=== PATIENT | female | born 1975 | race American Indian/Alaskan Native ===

== ENCOUNTER 2017-12-19 23:01 | Inpatient (IN) | payer SELFPAY ==
[2017-12-19 23:58] LABS: Basophils # (Auto) 0.1 K/mm3 (0.0-0.1); Basophils % (Auto) 1.1 % (0.0-1.8); Eosinophils % (Auto) 0.6 % (0.0-4.3); Lymphocytes # (Auto) 2.3 K/mm3 (1.2-5.4); Lymphocytes % (Auto) 41.3 % (13.4-35.0); Mean Corpuscular HGB Conc 32 % (30-34); Monocytes # (Auto) 0.4 K/mm3 (0.0-0.8); Monocytes % (Auto) 7.4 % (0.0-7.3); Platelet Count 613 K/mm3 (140-440); Red Blood Count 2.36 M/mm3 (3.65-5.03); Red Cell Distribution Width 19.6 % (13.2-15.2)
[2017-12-20] LABS: Mean Corpuscular Hemoglobin 22 pg (28-32); Mean Corpuscular Volume 69 fl (79-97)
[2017-12-20 00:01] LABS: Hematocrit 16.2 % (30.3-42.9); Hemoglobin 5.1 gm/dl (10.1-14.3)
[2017-12-20 00:19] LABS: BUN/Creatinine Ratio 12; Blood Urea Nitrogen 6 mg/dL (7-17); Hemolysis Index 3
[2017-12-20] MEDS ORDERED: NACL 0.9% 500 ML 500 ML IV ONE (00:23)
--- NOTE | 2017-12-20 00:30 | Emergency Department Report ---
HPI - General Chief Complaint: Dyspnea/Respdistress Time Seen by Provider: 12/20/17 00:12 - HPI HPI: Room 3 The patient is a 42-year-old female presenting with a chief complaint of shortness of breath and weakness. Patient states for the past 4 days and feeling short of breath and weak especially when standing. Patient states she' s been eating more ice than normal. Patient denies pain of any type. The patient states she had one episode of vomiting yesterday and the vomitus consisted of food. There is no hematemesis. Patient states last week for 1 day she had black stool. The patient states she has a history of heavy cycles intermittently for her last cycle started 4 days ago and has been roving frame tender than normal. The patient states she goes through over 10 pads per day for the past and so she just likes to frequently change her pads. Location: [See above] Duration: 4 days Quality: Shortness of breath, weakness Severity: Moderate Modifying factors: [see above] Context: [see above] Mode of transportation: [not driving] ED Past Medical Hx - Past Medical History Previous Medical History?: No - Surgical History Past Surgical History?: No - Family History Family history: no significant - Social History Smoking Status: Never Smoker Substance Use Type: None (denies illicit drug use), Alcohol (rarely) - Medications Home Medications: Home Medications Medication Instructions Recorded Confirmed Last Taken Type No Known Home Medications [No 12/19/17 12/19/17 Unknown History Reported Home Medications] ED Review of Systems ROS: Stated complaint: SOB Other details as noted in HPI Constitutional: weakness Eyes: denies: eye pain ENT: denies: throat pain Respiratory: shortness of breath Cardiovascular: denies: chest pain Endocrine: denies: unexplained weight loss Gastrointestinal: nausea, vomiting, melena. denies: abdominal pain, hematemesis Genitourinary: denies: dysuria Musculoskeletal: denies: back pain Neurological: denies: headache Physical Exam - Physical Exam Vital Signs: Vital Signs 12/19/17 12/20/17 22:59 00:09 Temperature 99.1 F 98.4 F Pulse Rate 105 H 100 H Respiratory 22 16 Rate Blood Pressure 137/86 Blood Pressure 124/83 [Left] O2 Sat by Pulse 100 100 Oximetry Physical Exam: GENERAL: The patient is well-developed well-nourished female lying on stretcher not appearing to be in acute distress. [] HEENT: Normocephalic. Atraumatic. Extraocular motions are intact. Patient has moist mucous membranes. NECK: Supple. Trachea midline CHEST/LUNGS: Clear to auscultation. There is no respiratory distress noted. HEART/CARDIOVASCULAR: Regular. There is no tachycardia. There is no gallop rub or murmur. ABDOMEN: Abdomen is soft, nontender. Patient has normal bowel sounds. There is no abdominal distention. SKIN: There is no rash. There is no edema. There is no diaphoresis. NEURO: The patient is awake, alert, and oriented. The patient is cooperative. The patient has normal speech MUSCULOSKELETAL: There is no evidence of acute injury. RECTAL: Guaiac positive PELVIC: Scant blood in vaginal vault ED Course Vital Signs 12/19/17 12/20/17 22:59 00:09 Temperature 99.1 F 98.4 F Pulse Rate 105 H 100 H Respiratory 22 16 Rate Blood Pressure 137/86 Blood Pressure 124/83 [Left] O2 Sat by Pulse 100 100 Oximetry - Consultations Consultation #1: 12/20/17 02:05 Gastroenterology paged 12/20/17 02:[address] bertrand-request patient remained nothing by mouth. Okay with Protonix BID dosing ED Medical Decision Making - Lab Data Result diagrams: 12/19/17 23:39 12/19/17 23:39 Laboratory Tests 12/19/17 12/19/17 12/19/17 23:39 23:39 23:39 WBC 5.5 RBC 2.36 L Hgb 5.1 L* Hct 16.2 L* MCV 69 L MCH 22 L MCHC 32 RDW 19.6 H Plt Count 613 H Lymph % (Auto) 41.3 H [place] % (Auto) 7.4 H Eos % (Auto) 0.6 Baso % (Auto) 1.1 Lymph # 2.3 [place] # 0.4 Eos # 0.0 Baso # 0.1 Seg Neutrophils % 49.6 Seg Neutrophils # 2.7 PT INR APTT Sodium 134 L Potassium 4.0 Chloride 96.9 L Carbon Dioxide 22 Anion Gap 19 BUN 6 L Creatinine 0.5 L Estimated GFR > 60 BUN/Creatinine Ratio 12 Glucose 238 H Calcium 9.0 Troponin T < 0.010 HCG, Qual Negative Blood Type Antibody Screen Crossmatch 12/20/17 12/20/17 00:22 00:29 WBC RBC Hgb Hct MCV MCH MCHC RDW Plt Count Lymph % (Auto) [place] % (Auto) Eos % (Auto) Baso % (Auto) Lymph # [place] # Eos # Baso # Seg Neutrophils % Seg Neutrophils # PT 14.4 INR 1.06 APTT 20.1 L Sodium Potassium Chloride Carbon Dioxide Anion Gap BUN Creatinine Estimated GFR BUN/Creatinine Ratio Glucose Calcium Troponin T HCG, Qual Blood Type O NEGATIVE Antibody Screen Negative Crossmatch See Detail - EKG Data -: EKG Interpreted by Me EKG shows normal: sinus rhythm Rate: normal - EKG Data When compared to previous EKG there are: previous EKG unavailable Interpretation: other (no ischemic changes seen) - Radiology Data Radiology results: report reviewed (pelvic ultrasound), image reviewed (pelvic ultrasound, chest x-ray) interpreted by me: Chest x-ray-no focal infiltrates, no pneumothorax [facility] [address] [place] [address] Ultrasound Report Signed Patient: LEANDRO MISHRA MR#: [id number] : 1975 Acct:[id number] Age/Sex: 42 / F ADM Date: 12/19/17 Loc: ED Attending Dr: Ordering Physician: ÁLVARO PEREZ MD Date of Service: 12/20/17 Procedure(s): US transvaginal Accession Number(s): [id number] cc: ÁLVARO PEREZ MD FINAL REPORT EXAM: US TRANSVAGINAL HISTORY: history of menorrhagia TECHNIQUE: Routine transvaginal imaging was obtained of the pelvis with Doppler interrogation of the adnexa. FINDINGS: The uterus is anteverted and enlarged measuring 10.4 cm x 7.2 cm x 8.8 cm. The myometrium is inhomogeneous. There are 2 discrete fibroids in the body of the uterus. One is anterior measuring 4.6 cm x 2.6 cm x 4.8 cm. The other 1 is posterior in position measuring 3.4 cm x 2.1 cm x 2 cm. The endometrial thickness is 1.9 mm. The right ovary is normal size contour blood flow and echotexture measuring 2.1 cm x 1.5 cm x 2.5 cm. The left ovary is normal size contour blood flow and echotexture measuring 3.3 cm x 2.3 cm x 2.8 cm. Both ovaries reveal benign follicles. Free fluid is not seen. IMPRESSION: Enlarged anteverted uterus containing at least 2 fibroids with measurements as described. The endometrial thickness is 1.9 mm. Normal-appearing ovaries. No evidence of free fluid. Transcribed By: RB Dictated By: MERRILL GUILLEN MD Electronically Authenticated By: MERRILL GUILLEN MD Signed Date/Time: 12/20/17125 DD/ 5 TD/TT: 12/20/17125 - Differential Diagnosis symptomatic anemia, GI bleeding, menorrhagia Critical care attestation.: If time is entered above; I have spent that time in minutes in the direct care of this critically ill patient, excluding procedure time. ED Disposition Clinical Impression: Symptomatic anemia, GI bleed, Uterine fibroid Disposition: OP ADMIT IP TO THIS HOSP Is pt being admited?: Yes Does the pt Need Aspirin: No Condition: Fair Referrals: PRIMARY CARE, [Primary Care Provider] - 3-5 Days Time of Disposition: 02:10 (hospitalist paged (Dr. Rena Vicente))
--- NOTE | 2017-12-20 00:45 | XRay Report ---
FINAL REPORT EXAM: XR CHEST 1V AP HISTORY: Shortness of breath TECHNIQUE: A portable view of the chest was obtained. FINDINGS: The heart size and mediastinum appear normal. The lungs are not congested. There are no localized infiltrates or effusions. The skeletal structures appear well maintained. IMPRESSION: No active chest disease.
[2017-12-20 00:56] LABS: INR 1.06 (0.87-1.13)
[2017-12-20 00:57] LABS: Partial Thromboplastin Time 20.1 Sec. (24.2-36.6)
--- NOTE | 2017-12-20 01:33 | Ultrasound Report ---
FINAL REPORT EXAM: US TRANSVAGINAL HISTORY: history of menorrhagia TECHNIQUE: Routine transvaginal imaging was obtained of the pelvis with Doppler interrogation of the adnexa. FINDINGS: The uterus is anteverted and enlarged measuring 10.4 cm x 7.2 cm x 8.8 cm. The myometrium is inhomogeneous. There are 2 discrete fibroids in the body of the uterus. One is anterior measuring 4.6 cm x 2.6 cm x 4.8 cm. The other 1 is posterior in position measuring 3.4 cm x 2.1 cm x 2 cm. The endometrial thickness is 1.9 mm. The right ovary is normal size contour blood flow and echotexture measuring 2.1 cm x 1.5 cm x 2.5 cm. The left ovary is normal size contour blood flow and echotexture measuring 3.3 cm x 2.3 cm x 2.8 cm. Both ovaries reveal benign follicles. Free fluid is not seen. IMPRESSION: Enlarged anteverted uterus containing at least 2 fibroids with measurements as described. The endometrial thickness is 1.9 mm. Normal-appearing ovaries. No evidence of free fluid.
--- NOTE | 2017-12-20 01:35 | Ultrasound Report ---
FINAL REPORT EXAM: US PELVIC COMPLETE HISTORY: history of menorrhagia TECHNIQUE: Transabdominal imaging was obtained of the pelvis. FINDINGS: The uterus is enlarged and anteverted measuring 10.4 cm x 7.2 cm x 8.8 cm. The myometrium is inhomogeneous. The endometrial thickness is 1.9 mm. There are least 2 fibroids in the body uterus the larger position anteriorly measuring 4.6 cm x 2.6 cm x 4.8 cm. The small and is posterior in position measuring 3.4 cm x 2.1 cm x 2 cm. Free fluid is not seen. Both ovaries are normal size contour and echotexture. The right ovary measures 2.1 cm x 1.5 cm x 2.5 cm. The left ovary measures 3.3 cm x 2.3 cm x 2.8 cm. IMPRESSION: Enlarged uterus containing at least 2 fibroids with measurements as described. Normal-appearing endometrium measuring 1.9 mm in thickness. Normal-appearing ovaries.
[2017-12-20] MEDS ORDERED: NACL 0.9% 1000 ML 1,000 ML ONE (01:38)
[2017-12-20] MEDS ORDERED: PROTONIX IV ONE (02:09)
[2017-12-20] MEDS ORDERED: SODIUM CHLORIDE FLUSH SYRINGE 10 ML IV PRN (02:51)
[2017-12-20] MEDS ORDERED: ZOFRAN IV PRN (02:51)
[2017-12-20] MEDS: NACL 0.9% 1000 ML 1,000 ML IV SCH ×2 (05:18→13:39)
--- NOTE | 2017-12-20 06:19 | History and Physical Report ---
History of Present Illness Date of examination: 12/20/17 Date of admission: 12/20/17 02:51 History of present illness: 42-year-old woman history of menorrhagia comes emergency room complaining of feeling weak, shortness of breath 4 days. She states she's been eating and lost of ice. Complaining of one episode of black stool last week, denies NSAID use. Admits to some palpitation, no chest pain Review of systems Constitutional: no weight loss, chills, fever Ears, eyes, nose, mouth and throat: no nasal congestion, no nasal discharge, no sinus pressure, no vision change, no red eye. Neck: No neck pain or rigidity. Cardiovascular: no chest pain Respiratory: no cough Gastrointestinal: no abdominal pain hematochezia Genitourinary : no frequency , no hematuria Musculoskeletal: no joint swelling or muscle ache Integumentary: no rash, no pruritis Neurological: no parathesias, no numbness, no focal weakness Endocrine: no cold or heat intolerance, no polyuria or polydipsia Hematologic/Lymphatic: no easy bruising, no easy bleeding, no gland swelling Allergic/Immunologic: no urticaria, no angioedema. PAST MEDICAL HISTORY: Menorrhagia PAST SURGICAL HISTORY: None SOCIAL HISTORY: No alcohol, no drugs, tobacco FAMILY HISTORY: Hypertension Medications and Allergies Allergies Allergy/AdvReac Type Severity Reaction Status Date / Time ibuprofen Allergy Hives Verified 12/19/17 23:36 Home Medications Medication Instructions Recorded Confirmed Last Taken Type No Known Home Medications [No 12/19/17 12/19/17 Unknown History Reported Home Medications] Active Meds: Active Medications Sodium Chloride (Nacl 0.9% 1000 Ml) 1,000 mls @ 75 mls/hr IV DIRECT RUFINO Last Admin: 12/20/17 05:18 Dose: 75 mls/hr Ondansetron HCl (Zofran) 4 mg IV Q8H PRN PRN Reason: Nausea And Vomiting Pantoprazole Sodium (Protonix) 40 mg IV BID RUFINO Sodium Chloride (Sodium Chloride Flush Syringe 10 Ml) 10 ml IV BID RUFINO Sodium Chloride (Sodium Chloride Flush Syringe 10 Ml) 10 ml IV PRN PRN PRN Reason: LINE FLUSH Exam - Physical Exam Narrative exam: Gen. appearance: Patient lying in bed, no apparent distress HEENT: Normocephalic, atraumatic, pupils equally round and reactive to light, extraocular movement intact, and no sclericterus,. No JVD or thyromegaly or nodule,neck supple, no carotid bruit ,mucous membranes moist, no exudate or erythema Heart: S1, S2, regular rate and rhythm Lungs: Clear bilaterally, breathing comfortable Abdomen: Positive bowel sounds, non-tender, nondistended, no organomegaly Extremity:no edema cyanosis, clubbing Skin: no rash, dry, warm Neuro: Oriented 3, cranial nerves II-12 intact, speech is fluent, motor and sensory intact - Constitutional Vitals: Temp Pulse Resp BP Pulse Ox 98.6 F 84 20 107/67 100 12/20/17 04:59 12/20/17 04:59 12/20/17 04:59 12/20/17 04:59 12/20/17 04:19 Results - Labs CBC & Chem 7: 12/19/17 23:39 12/19/17 23:39 Labs: Abnormal lab results 12/19/17 12/19/17 12/20/17 Range/Units 23:39 23:39 00:22 RBC 2.36 L (3.65-5.03) M/mm3 Hgb 5.1 L* (10.1-14.3) gm/dl Hct 16.2 L* (30.3-42.9) % MCV 69 L (79-97) fl MCH 22 L (28-32) pg RDW 19.6 H (13.2-15.2) % Plt Count 613 H (140-440) K/mm3 Lymph % (Auto) 41.3 H (13.4-35.0) % [place] % (Auto) 7.4 H (0.0-7.3) % APTT (24.2-36.6) Sec. Sodium 134 L (137-145) mmol/L Chloride 96.9 L (98-107) mmol/L BUN 6 L (7-17) mg/dL Creatinine 0.5 L (0.7-1.2) mg/dL Glucose 238 H (65-100) mg/dL Crossmatch See Detail 12/20/17 Range/Units 00:29 RBC (3.65-5.03) M/mm3 Hgb (10.1-14.3) gm/dl Hct (30.3-42.9) % MCV (79-97) fl MCH (28-32) pg RDW (13.2-15.2) % Plt Count (140-440) K/mm3 Lymph % (Auto) (13.4-35.0) % [place] % (Auto) (0.0-7.3) % APTT 20.1 L (24.2-36.6) Sec. Sodium (137-145) mmol/L Chloride (98-107) mmol/L BUN (7-17) mg/dL Creatinine (0.7-1.2) mg/dL Glucose (65-100) mg/dL Crossmatch Assessment and Plan pelvic and transvaginal ultrasound reviewed Assessment GI bleed Symptomatic anemia Menorrhagia Plan Admit to medicine Start IV Protonix, IV fluid, transfuse blood Consult GI, check iron profile , DVT prophylaxis
[2017-12-20 06:43] LABS: Iron 16 ug/dL (37-170)
--- NOTE | 2017-12-20 09:30 | Gastroenterology Consultation ---
<PJ ACEVEDO - Last Filed: 12/20/17 09:39> History of Present Illness - Reason for Consult Consult date: 12/20/17 GI bleed Requesting physician: ÁLVARO PEREZ - History of Present Illness Patient is a 42 y/o female with no significant PMH who presented to ED with c/o SOB and weakness. She was found to be anemic upon admission with H/H 5.1/16.2 along with stool occult positive to which GI has been consulted. This morning patient was resting in bed w/o acute distress. Reports SOB has improved after transfusion of PRBCs. Admits to BM x 1 last week with black stool and a hx menorrhagia, however recent menstrual cycle (4 days ago) was reel fed printer than normal. No hematemesis or hematochezia. Denies fever, wt loss, CP, dizziness, abd pain, N/V, dysphagia, odynophagia, or LGI symptoms such as diarrhea or constipation. Takes Goody's powder occasionally. No previous hx of anemia, GI bleeding, or PUD. No previous endoscopic evaluation. Past History Past Medical History: other (menorrhagia) Past Surgical History: No surgical history Social history: denies: smoking, alcohol abuse Family history: hypertension Medications and Allergies Allergies Allergy/AdvReac Type Severity Reaction Status Date / Time ibuprofen Allergy Hives Verified 12/19/17 23:36 Home Medications Medication Instructions Recorded Confirmed Last Taken Type No Known Home Medications [No 12/19/17 12/19/17 Unknown History Reported Home Medications] Active Meds: Active Medications Sodium Chloride (Nacl 0.9% 1000 Ml) 1,000 mls @ 75 mls/hr IV DIRECT RUFINO Last Admin: 12/20/17 05:18 Dose: 75 mls/hr Ondansetron HCl (Zofran) 4 mg IV Q8H PRN PRN Reason: Nausea And Vomiting Pantoprazole Sodium (Protonix) 40 mg IV BID RUFINO Sodium Chloride (Sodium Chloride Flush Syringe 10 Ml) 10 ml IV BID RUFINO Sodium Chloride (Sodium Chloride Flush Syringe 10 Ml) 10 ml IV PRN PRN PRN Reason: LINE FLUSH Review of Systems - Review of Systems All systems: negative Constitutional: fatigue Gastrointestinal: melena Exam - Constitutional Vital Signs: Temp Pulse Resp BP Pulse Ox 98.3 F 84 100 H 115/72 100 12/20/17 07:00 12/20/17 07:00 12/20/17 07:00 12/20/17 07:00 12/20/17 04:19 General appearance: no acute distress - EENT Eyes: PERRL, EOM intact ENT: hearing intact - Respiratory Respiratory: bilateral: CTA - Cardiovascular Rhythm: regular Heart Sounds: Present: S1 & S2 - Gastrointestinal General gastrointestinal: Present: soft, non-tender, non-distended, normal bowel sounds - Integumentary Integumentary: Present: warm, dry - Neurologic Neurological: alert and oriented x3 - Labs CBC & Chem 7: 12/19/17 23:39 12/19/17 23:39 Lab Results: Laboratory Results - last 24 hr 12/19/17 12/19/17 12/19/17 23:39 23:39 23:39 WBC 5.5 RBC 2.36 L Hgb 5.1 L* Hct 16.2 L* MCV 69 L MCH 22 L MCHC 32 RDW 19.6 H Plt Count 613 H Lymph % (Auto) 41.3 H [place] % (Auto) 7.4 H Eos % (Auto) 0.6 Baso % (Auto) 1.1 Lymph # 2.3 [place] # 0.4 Eos # 0.0 Baso # 0.1 Seg Neutrophils % 49.6 Seg Neutrophils # 2.7 PT INR APTT Sodium 134 L Potassium 4.0 Chloride 96.9 L Carbon Dioxide 22 Anion Gap 19 BUN 6 L Creatinine 0.5 L Estimated GFR > 60 BUN/Creatinine Ratio 12 Glucose 238 H Calcium 9.0 Iron 16 L Troponin T < 0.010 HCG, Qual Negative Blood Type Antibody Screen Crossmatch 12/20/17 12/20/17 00:22 00:29 WBC RBC Hgb Hct MCV MCH MCHC RDW Plt Count Lymph % (Auto) [place] % (Auto) Eos % (Auto) Baso % (Auto) Lymph # [place] # Eos # Baso # Seg Neutrophils % Seg Neutrophils # PT 14.4 INR 1.06 APTT 20.1 L Sodium Potassium Chloride Carbon Dioxide Anion Gap BUN Creatinine Estimated GFR BUN/Creatinine Ratio Glucose Calcium Iron Troponin T HCG, Qual Blood Type O NEGATIVE Antibody Screen Negative Crossmatch See Detail Assessment and Plan 1.GI bleed 2.melena 3.anemia 4.hx of menorrhagia (pelvic u/s revealed enlarged anteverted uterus containing at least 2 fibroids) -stool occult positive -HGB 5.1- 2 units PRBCs transfused- repeat H/H pending -continue to monitor H/H and transfuse as needed -hold blood thinning medications -BM x 1 last week with black stool- no active signs of bleeding -currently HD stable -etiology unclear- possible ulcer vs other (menorrhagia?) -will schedule for EGD today to r/o ulcer vs other GI pathology -consider [employer] consult -Keep NPO -repeat H/H now -continue PPI and supportive care -will follow <MADELAINE FREDERICK R - Last Filed: 12/20/17 13:58> Medications and Allergies Active Meds: Active Medications Sodium Chloride (Nacl 0.9% 1000 Ml) 1,000 mls @ 75 mls/hr IV DIRECT [facility] Last Admin: 12/20/17 13:39 Dose: 75 mls/hr Ondansetron HCl (Zofran) 4 mg IV Q8H PRN PRN Reason: Nausea And Vomiting Pantoprazole Sodium (Protonix) 40 mg IV BID [facility] Last Admin: 12/20/17 09:59 Dose: 40 mg Sodium Chloride (Sodium Chloride Flush Syringe 10 Ml) 10 ml IV BID [facility] Sodium Chloride (Sodium Chloride Flush Syringe 10 Ml) 10 ml IV PRN PRN PRN Reason: LINE FLUSH Exam - Constitutional Vital Signs: Temp Pulse Resp BP Pulse Ox 97.9 F 83 22 132/87 100 12/20/17 13:28 12/20/17 13:28 12/20/17 13:28 12/20/17 13:28 12/20/17 13:28 - Labs CBC & Chem 7: 12/20/17 11:54 12/19/17 23:39 Lab Results: Laboratory Results - last 24 hr 12/19/17 12/19/17 12/19/17 23:39 23:39 23:39 WBC 5.5 RBC 2.36 L Hgb 5.1 L* Hct 16.2 L* MCV 69 L MCH 22 L MCHC 32 RDW 19.6 H Plt Count 613 H Lymph % (Auto) 41.3 H [place] % (Auto) 7.4 H Eos % (Auto) 0.6 Baso % (Auto) 1.1 Lymph # 2.3 [place] # 0.4 Eos # 0.0 Baso # 0.1 Seg Neutrophils % 49.6 Seg Neutrophils # 2.7 PT INR APTT Sodium 134 L Potassium 4.0 Chloride 96.9 L Carbon Dioxide 22 Anion Gap 19 BUN 6 L Creatinine 0.5 L Estimated GFR > 60 BUN/Creatinine Ratio 12 Glucose 238 H Calcium 9.0 Iron 16 L Troponin T < 0.010 HCG, Qual Negative Blood Type Antibody Screen Crossmatch 12/20/17 12/20/17 12/20/17 00:22 00:29 11:54 WBC RBC Hgb 7.5 L Hct 23.5 L D MCV MCH MCHC RDW Plt Count Lymph % (Auto) [place] % (Auto) Eos % (Auto) Baso % (Auto) Lymph # [place] # Eos # Baso # Seg Neutrophils % Seg Neutrophils # PT 14.4 INR 1.06 APTT 20.1 L Sodium Potassium Chloride Carbon Dioxide Anion Gap BUN Creatinine Estimated GFR BUN/Creatinine Ratio Glucose Calcium Iron Troponin T HCG, Qual Blood Type O NEGATIVE Antibody Screen Negative Crossmatch See Detail Assessment and Plan Information Assurance with long hx of eating ice, and no significant GI symptoms. Heavy menses x approx 3 months.
[2017-12-20] MEDS: PROTONIX IV SCH ×2 (09:59→21:40)
[2017-12-20 12:18] LABS: Hematocrit 23.5 % (30.3-42.9); Hemoglobin 7.5 gm/dl (10.1-14.3)
[2017-12-20] MEDS ORDERED: NACL 0.9% 1000 ML 1,000 ML IV SCH (13:00)
[2017-12-20] MEDS ORDERED: WATER FOR IRRIG STERILE IR ONE (13:36)
[2017-12-20] MEDS ORDERED: DIPRIVAN 10 MG/ML IV ONE (13:46)
--- NOTE | 2017-12-20 13:49 | Anesthesia Day of Surgery ---
Anesthesia Day of Surgery - Day of Surgery Patient Examined: Yes Patient H&P Reviewed: Yes Patient is NPO: Yes
--- NOTE | 2017-12-20 13:49 | Anesthesia Consultation ---
Anesthesia Consult and Med Hx Date of service: 12/20/17 - Airway Anesthetic Teeth Evaluation: Good ROM Head & Neck: Adequate Mental/Hyoid Distance: Adequate Mallampati Class: Class II Intubation Access Assessment: Probably Good - Pulmonary Exam CTA: Yes - Cardiac Exam Cardiac Exam: RRR - Pre-Operative Health Status ASA Pre-Surgery Classification: ASA1 Proposed Anesthetic Plan: MAC - Central Nervous System Hx Psychiatric Problems: No - Endocrine Hx End Stage Renal Disease: No - Hematic Hx Anemia: Yes (s/p blood transfusion )
--- NOTE | 2017-12-20 14:01 | Post Operative Note ---
Pre-op diagnosis: Anemia, melena Post-op diagnosis: other (Multiple duodenal bulb ulcers) Findings: 1. Duodenal bulb deformity, with 2 large cratered ulcers approx 1 cm, and 1 smaller one. No stigmata of bleeding. 2. Otherwise normal EGD. Antrum biopsied. Procedure: EGD with biopsy Anesthesia: MAC Surgeon: MADELAINE FREDERICK Estimated blood loss: minimal Pathology: list (1. Gastric antrum) Specimen disposition: to lab Condition: stable Disposition: floor (Chronic bid PPI. F/u pathology. No further GI intervention planned.)
[2017-12-20] MEDS: SODIUM CHLORIDE FLUSH SYRINGE 10 ML IV SCH ×2 (14:15→21:39)
--- NOTE | 2017-12-20 15:14 | Consultation ---
History of Present Illness Consult date: 12/20/17 Requesting physician: LORI TITUS Reason for consult: menorrhagia, other (symptomatic anemia) History of present illness: Patient is a 42-year-old black female LMP 12/14/2017 who presented to [facility] emergency room complaining of feeling weak with shortness of breath for the past 4 days. She also complains of prolonged heavy vaginal bleeding and a known history of uterine fibroids. She does not use any type of control and she does not have a YOUTH DEVELOPMENT SPECIALIST physician. A pelvic ultrasound showed an enlarged uterus measuring 10.4 x 7.2 x 8.8 cm with at least 2 fibroids measuring 4.6 x 2.6 x 4.8 cm and a small fibroid measuring 3.4 x 2.1 x 2 cm for which I have been consulted to address. She has received blood and is feeling much better, and her bleeding has improved. Past History Past Medical History: other (menorrhagia) Past Surgical History: no surgical history YOUTH DEVELOPMENT SPECIALIST History: fibroids Family/Genetic History: hypertension Social history: no significant social history, single Medications and Allergies Allergies Allergy/AdvReac Type Severity Reaction Status Date / Time ibuprofen Allergy Hives Verified 12/19/17 23:36 Home Medications Medication Instructions Recorded Confirmed Last Taken Type No Known Home Medications [No 12/19/17 12/19/17 Unknown History Reported Home Medications] Active Meds: Active Medications Sodium Chloride (Nacl 0.9% 1000 Ml) 1,000 mls @ 75 mls/hr IV DIRECT [facility] Last Admin: 12/20/17 13:39 Dose: 75 mls/hr Ondansetron HCl (Zofran) 4 mg IV Q8H PRN PRN Reason: Nausea And Vomiting Pantoprazole Sodium (Protonix) 40 mg IV BID [facility] Last Admin: 12/20/17 09:59 Dose: 40 mg Sodium Chloride (Sodium Chloride Flush Syringe 10 Ml) 10 ml IV BID [facility] Last Admin: 12/20/17 14:15 Dose: Not Given Sodium Chloride (Sodium Chloride Flush Syringe 10 Ml) 10 ml IV PRN PRN PRN Reason: LINE FLUSH Review of Systems All systems: negative - Vital Signs Vital signs: Vital Signs Temp Pulse Resp BP Pulse Ox 99.1 F 105 H 22 137/86 100 12/19/17 22:59 12/19/17 22:59 12/19/17 22:59 12/19/17 22:59 12/19/17 22:59 Temp Pulse Resp BP Pulse Ox 98.8 F 85 19 131/93 100 12/20/17 13:55 12/20/17 14:25 12/20/17 14:25 12/20/17 14:25 12/20/17 14:25 - Physical Exam Breasts: Positive: deferred Cardiovascular: Regular rate Lungs: Positive: Clear to auscultation Abdomen: Positive: other (deferred) Genitourinary (Female): Positive: other (deferred) Uterus: Positive: enlarged Results Result Diagrams: 12/20/17 11:54 12/19/17 23:39 Abnormal lab results 12/19/17 12/19/17 12/19/17 Range/Units 23:39 23:39 23:39 RBC 2.36 L (3.65-5.03) M/mm3 Hgb 5.1 L* (10.1-14.3) gm/dl Hct 16.2 L* (30.3-42.9) % MCV 69 L (79-97) fl MCH 22 L (28-32) pg RDW 19.6 H (13.2-15.2) % Plt Count 613 H (140-440) K/mm3 Lymph % (Auto) 41.3 H (13.4-35.0) % [place] % (Auto) 7.4 H (0.0-7.3) % APTT (24.2-36.6) Sec. Sodium 134 L (137-145) mmol/L Chloride 96.9 L (98-107) mmol/L BUN 6 L (7-17) mg/dL Creatinine 0.5 L (0.7-1.2) mg/dL Glucose 238 H (65-100) mg/dL Iron 16 L (37-170) ug/dL Ferritin 3.9 L (13.0-400.0) ng/mL Crossmatch 12/20/17 12/20/17 12/20/17 Range/Units 00:22 00:29 11:54 RBC (3.65-5.03) M/mm3 Hgb 7.5 L (10.1-14.3) gm/dl Hct 23.5 L D (30.3-42.9) % MCV (79-97) fl MCH (28-32) pg RDW (13.2-15.2) % Plt Count (140-440) K/mm3 Lymph % (Auto) (13.4-35.0) % [place] % (Auto) (0.0-7.3) % APTT 20.1 L (24.2-36.6) Sec. Sodium (137-145) mmol/L Chloride (98-107) mmol/L BUN (7-17) mg/dL Creatinine (0.7-1.2) mg/dL Glucose (65-100) mg/dL Iron (37-170) ug/dL Ferritin (13.0-400.0) ng/mL Crossmatch See Detail All other labs normal. Ultrasound: report reviewed Assessment and Plan - Patient Problems (1) Uterine fibroid Onset Date: 12/20/17 Current Visit: Yes Status: Acute Qualifiers: Uterine leiomyoma location: intramural and subserous Qualified Code(s): D25.1 - Intramural leiomyoma of uterus; D25.2 - Subserosal leiomyoma of uterus Plan to address problem: A: Uterine fibroids Menorrhagia - most likely due to uterine fibroids Chronic blood loss anemia - most likely due to menorrhagia P: Agree with admission for blood transfusion She can follow up in the office for Pap smear and endometrial biopsy No immediate intervention at this time Thank you for this consultation - I will be glad to follow up with Jason Jose in the office next week (2) Menorrhagia with regular cycle Onset Date: 12/20/17 Current Visit: Yes Status: Chronic (3) Chronic blood loss anemia Onset Date: 12/20/17 Current Visit: Yes Status: Acute
--- NOTE | 2017-12-20 16:40 | Event Note ---
Date: 12/20/17 Patient seen and examined, discussed with GI, egd showed multiple duodenal bulb ulcer. PPI started. AVOID NSAIDS
--- NOTE | 2017-12-20 19:34 | Operative Report ---
PROCEDURE: Upper endoscopy with biopsy. PREOPERATIVE DIAGNOSES: Anemia and melena. POSTOPERATIVE DIAGNOSES: Multiple duodenal bulb ulcer. SEDATION: MAC by Anesthesia. HISTORY: The patient is a 42-year-old woman who presents with weakness and was found to have anemia with hemoglobin of 5.1 and an MCV of 69. She described history of melena 1 week ago. Procedure, indications, risks, and benefits were explained and consent was obtained. DESCRIPTION OF PROCEDURE: The patient was placed in left lateral decubitus position and sedated. [employer] video upper endoscope was passed through the mouth and oropharynx into the descending duodenum. Scope was then gradually withdrawn with close inspection of the mucosa. FINDINGS: 1. Normal-appearing esophagus with sharp Z-line located at 35 cm from the incisors. 2. Normal-appearing gastric antrum, fundus, and body. Antral biopsies were obtained for H. pylori. 3. Patulous pylorus. 4. Multiple duodenal bulb ulcers. Two were approximately 1 cm in diameter and cratered with white base. There was at least one smaller one as well in the duodenal bulb. There was no stigmata of bleeding. 5. Remainder of duodenum was normal appearing. The patient tolerated the procedure well without immediate complication. IMPRESSION: 1. Multiple duodenal bulb ulcers -- antrum biopsied to rule out H. pylori. 2. Otherwise, normal upper endoscopy. 3. No stigmata of bleeding noted. PLAN: 1. Chronic proton pump inhibitors. 2. Follow up pathology. 3. Advance diet and may discharge as tolerated. JOB# [id number] HRC/NTS
[2017-12-21 05:58] LABS: Basophils % (Auto) 0.9 % (0.0-1.8); Eosinophils # (Auto) 0.1 K/mm3 (0.0-0.4); Eosinophils % (Auto) 1.4 % (0.0-4.3); Hematocrit 24.1 % (30.3-42.9); Hemoglobin 7.7 gm/dl (10.1-14.3); Lymphocytes # (Auto) 2.6 K/mm3 (1.2-5.4); Lymphocytes % (Auto) 49.4 % (13.4-35.0); Mean Corpuscular HGB Conc 32 % (30-34); Mean Corpuscular Hemoglobin 24 pg (28-32); Mean Corpuscular Volume 75 fl (79-97); Monocytes # (Auto) 0.4 K/mm3 (0.0-0.8); Monocytes % (Auto) 6.9 % (0.0-7.3); Platelet Count 472 K/mm3 (140-440); Red Blood Count 3.24 M/mm3 (3.65-5.03); Red Cell Distribution Width 22.1 % (13.2-15.2)
[2017-12-21 06:16] LABS: BUN/Creatinine Ratio 14; Blood Urea Nitrogen 7 mg/dL (7-17); Calcium 8.4 mg/dL (8.4-10.2); Hemolysis Index 0
[2017-12-21 08:54] VITALS: BP 114/70
--- NOTE | 2017-12-21 10:18 | Gastroenterology Progress Note ---
Assessment and Plan 1.GI bleed 2.melena 3.anemia 4.hx of menorrhagia (pelvic u/s revealed enlarged anteverted uterus containing at least 2 fibroids) -HGB 7.7- stable -continue to monitor H/H and transfuse as needed -no active signs of bleeding overnight or this am -s/p EGD yesterday that revealed multiple duodenal bulb ulcers -bx results pending (f/u in clinic) -clinically, patient is stable with GI complaints -tolerating clears- okay to advance diet -continue PPI BID -avoid NSAIDs -continue supportive care -patient okay to be d/c per GI standpoint on PPI with f/u clinic appt in 2 weeks (office information and card given to pt) -will sign off, please call if needed Subjective Date of service: 12/21/17 Principal diagnosis: GI bleed Interval history: Patient resting in bed this am w/o acute distress. No active signs of bleeding overnight or this am. Denies abd pain or N/v. Objective - Constitutional Vitals: Temp Pulse Resp BP Pulse Ox 98.4 F 75 20 114/70 100 12/21/17 07:33 12/21/17 07:33 12/21/17 07:33 12/21/17 07:33 12/21/17 07:33 General appearance: no acute distress - Respiratory Respiratory: bilateral: CTA - Cardiovascular Rhythm: regular Heart Sounds: Present: S1 & S2 - Gastrointestinal General gastrointestinal: Present: soft, non-tender, non-distended, normal bowel sounds - Neurologic Neurological: alert and oriented x3 - Labs CBC & Chem 7: 12/21/17 05:32 12/21/17 05:32 Labs: Laboratory Results - last 24 hr 12/19/17 12/20/17 12/21/17 23:39 11:54 05:32 WBC 5.3 RBC 3.24 L Hgb 7.5 L 7.7 L Hct 23.5 L D 24.1 L MCV 75 L MCH 24 L MCHC 32 RDW 22.1 H Plt Count 472 H Lymph % (Auto) 49.4 H [place] % (Auto) 6.9 Eos % (Auto) 1.4 Baso % (Auto) 0.9 Lymph # 2.6 [place] # 0.4 Eos # 0.1 Baso # 0.0 Seg Neutrophils % 41.4 Seg Neutrophils # 2.2 Sodium Potassium Chloride Carbon Dioxide Anion Gap BUN Creatinine Estimated GFR BUN/Creatinine Ratio Glucose Calcium Ferritin 3.9 L 12/21/17 05:32 WBC RBC Hgb Hct MCV MCH MCHC RDW Plt Count Lymph % (Auto) [place] % (Auto) Eos % (Auto) Baso % (Auto) Lymph # [place] # Eos # Baso # Seg Neutrophils % Seg Neutrophils # Sodium 138 Potassium 4.2 Chloride 101.9 Carbon Dioxide 24 Anion Gap 16 BUN 7 Creatinine 0.5 L Estimated GFR > 60 BUN/Creatinine Ratio 14 Glucose 179 H Calcium 8.4 Ferritin
--- NOTE | 2017-12-21 10:52 | Discharge Summary ---
Providers - Providers Date of Admission: 12/20/17 02:51 Attending physician: LORI TITUS MD 12/20/17 02:09 Consult to Physician [CONS] Urgent Comment: Dr. Ashley spoke with Dr. Alvarez @ [phone] Consulting Provider: BAYRON ALVAREZ Physician Instructions: Reason For Exam: GI bleed 12/20/17 11:35 Consult to Physician [CONS] Routine Comment: Consulting Provider: ALBERTO SPENCER Physician Instructions: Reason For Exam: MENORRHAGIA, Fibroid Primary care physician: FLOTATION OPERATOR Hospitalization Condition: Stable Disposition: DC- TO HOME OR SELFCARE Core Measure Documentation - Palliative Care Palliative Care/ Comfort Measures: Not Applicable Exam - Constitutional Vitals: Temp Pulse Resp BP Pulse Ox 98.4 F 75 20 114/70 100 12/21/17 07:33 12/21/17 07:33 12/21/17 07:33 12/21/17 07:33 12/21/17 09:56 Plan Activity: advance as tolerated, fall precautions Diet: regular Special Instructions: record daily BP diary Additional Instructions: must avoid all NSAIDS including but not limited to Goody powder Follow up with: JUAN JOSÉ ROTHMAN MD [Primary Care Provider] - 3-5 Days MADELAINE FREDERICK MD [Staff Physician] - 7 Days ALBERTO SPENCER MD [Staff Physician] - 7 Days Prescriptions: Pantoprazole [Protonix TAB] 20 mg PO BID #60 tablet.
[2017-12-21] MEDS: SODIUM CHLORIDE FLUSH SYRINGE 10 ML IV SCH (12:30)
[2017-12-21] MEDS: PROTONIX IV SCH (12:30)
== END 2017-12-21 11:55 | disposition home or self-care (01) | DRG 379 ==
LOC: ED 23:01 → 4A 12-20 02:51
PROVIDERS: ADMIT Internal Medicine; ATTEND Internal Medicine
PROC: 0DB78ZX Excision of Stomach, Pylorus, Via Natural or Artificial Opening Endoscopic, Diagnostic (ICD-10-PCS; principal; 2017-12-20)
PROC: 30233N1 Transfusion of Nonautologous Red Blood Cells into Peripheral Vein, Percutaneous Approach (ICD-10-PCS; 2017-12-20)
DX: K26.4 Chronic or unspecified duodenal ulcer with hemorrhage (principal); D50.9 Iron deficiency anemia, unspecified; N92.0 Excessive and frequent menstruation with regular cycle; D25.1 Intramural leiomyoma of uterus; D25.2 Subserosal leiomyoma of uterus
CPT/HCPCS: 36415; 71045; 76830; 76856; 80048; 82271; 82728; 83540; 84484; 84703; 85014; 85018; 85025; 85610; 85730; 86850; 86900; 86901; 86920; 88305; 88342; 93005; 93010; 94760; C9113; J2704; J7030; P9016

== ENCOUNTER 2019-10-02 10:18 | Emergency (ER) | payer OTHER ==
[2019-10-02 10:28] VITALS: BP 150/97
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
== END 2019-10-02 12:55 | disposition home or self-care (01) ==
LOC: ED 10:18
DX: S76.812A Strain of other specified muscles, fascia and tendons at thigh level, left thigh, initial encounter (principal); S46.812A Strain of other muscles, fascia and tendons at shoulder and upper arm level, left arm, initial encounter; S46.811A Strain of other muscles, fascia and tendons at shoulder and upper arm level, right arm, initial encounter; M25.562 Pain in left knee; Z79.899 Other long term (current) drug therapy; Z88.2 Allergy status to sulfonamides; Z88.6 Allergy status to analgesic agent; Z88.0 Allergy status to penicillin; V49.59XA Passenger injured in collision with other motor vehicles in traffic accident, initial encounter; Y93.89 Activity, other specified; Y92.410 Unspecified street and highway as the place of occurrence of the external cause; Y99.8 Other external cause status

== ENCOUNTER 2020-12-22 06:49 | Emergency (ER) | payer SELFPAY ==
[2020-12-22 07:18] VITALS: BP 139/99
--- NOTE | 2020-12-22 10:21 | Emergency Department Report ---
ED Rash HPI - HPI Chief Complaint: Skin/Abscess/Foreign Body Stated Complaint: ALLERGIC REACTION Time Seen by Provider: 12/22/20 09:41 Duration: 1 Day Location: Back, Upper Extremities, Lower Extremities Suspected Cause: Unknown Rash Symptoms: Yes Itching, No Facial Swelling, No Tongue/Oral Swelling, No Breathing Difficulties, No Choking Sensation, No Wheezing/Dyspnea, No Peeling, No Blistering, No Fever, No Lightheaded, No Malaise, No Myalgias Severity: mild Other History: 45-year-old -[place] female presents to emergency room for multiple small spots scattered all over her arms legs back and abdomen. Patient cannot recall anything new except the body wash. Patient states that she take Benadryl one dose yesterday. She reports that the lesions itch. She denies any shortness of breath chest pain no throat closure tightness no difficulty breathing. Patient denies any past medical history currently takes no medications on a daily basis and has an allergy to sulfur and ibuprofen. ED Review of Systems ROS: Stated complaint: ALLERGIC REACTION Other details as noted in HPI ED Past Medical Hx - Past Medical History Previous Medical History?: No Hx Heart Attack/AMI: No Hx Congestive Heart Failure: No Hx Diabetes: No Hx Liver Disease: No Hx Asthma: No Hx COPD: No Hx HIV: No - Surgical History Past Surgical History?: No - Social History Smoking Status: Never Smoker Substance Use Type: None - Medications Home Medications: Home Medications Medication Instructions Recorded Confirmed Last Taken Type Pantoprazole [Protonix TAB] 20 mg PO BID #60 tablet. 12/21/17 Unknown Rx Acetaminophen [Tylenol] 650 mg PO Q8HR PRN #20 capsule 10/02/19 Unknown Rx methOCARBAMOL [Robaxin TAB] 500 mg PO BID PRN #12 tab 10/02/19 Unknown Rx Cetirizine HCl 10 mg PO DAILY #10 tablet 12/22/20 Unknown Rx Famotidine [Pepcid] 20 mg PO BID #20 tablet 12/22/20 Unknown Rx Prednisone [predniSONE 5 mg (6-Day 5 mg PO .TAPER #1 tab.ds.pk 12/22/20 Unknown Rx Pack, 21 Tabs)] Rash Exam - Exam General: Vital signs noted. No distress. Alert and acting appropriately. HEENT: No Periorbital Edema, No Conjuctival Injection, No Chemosis, No Perioral Edema, No Tongue Edema, No Uvular Edema, No Compromised Airway, No Drooling Lungs: Yes Good Air Exchange (Normal Breath Sounds), No Wheezes, No Ronchi, No Stridor, No Cough, No Labored Respirations, No Retractions, No Use of Accessory Muscles, No Other Abnormal Lung Sounds Heart: Yes Regular, No Murmur Skin: Yes Urticarial Rash (Upper and lower extremities back chest), No Maculopapular Rash, No Morbilliform rash, No Bulla(e), No Excoriations, No Weeping, No Tenderness, No Erythema, No Edema, No Encrustations, No Other Other: Positive: Abdomen Normal, Neurologic Normal, Musculoskeletal Normal ED Course Vital Signs 12/22/20 07:17 Temperature 98.1 F Pulse Rate 78 Respiratory 18 Rate Blood Pressure 139/99 O2 Sat by Pulse 100 Oximetry ED Medical Decision Making - Medical Decision Making 45-year-old -[place] female presents to emergency room for multiple small spots scattered all over her arms legs back and abdomen. Patient cannot recall anything new except the body wash. Patient states that she take Benadryl one dose yesterday. She reports that the lesions itch. She denies any shortness of breath chest pain no throat closure tightness no difficulty breathing. Patient denies any past medical history currently takes no medications on a daily basis and has an allergy to sulfur and ibuprofen. Discussed with patient we will discharge her home on Pepcid Zyrtec's and a prednisone pack. Patient is to follow-up with a primary care provider to have allergy testing. Critical care attestation.: If time is entered above; I have spent that time in minutes in the direct care of this critically ill patient, excluding procedure time. ED Disposition Clinical Impression: Urticaria Disposition: DC-01 TO HOME OR SELFCARE Is pt being admited?: No Does the pt Need Aspirin: No Condition: Stable Instructions: Hives, [id number] Additional Instructions: Please take medications as prescribed. Please follow-up with your primary care provider for allergy testing. Or you can follow-up on an allergy clinic. Prescriptions: Cetirizine HCl 10 mg PO DAILY #10 tablet Famotidine [Pepcid] 20 mg PO BID #20 tablet Prednisone [predniSONE 5 mg (6-Day Pack, 21 Tabs)] 5 mg PO .TAPER #1 tab.ds.pk Referrals: PRIMARY CARE, [Primary Care Provider] - 3-5 Days [facility] [Provider Group] - 3-5 Days [facility] [Provider Group] - 3-5 Days Time of Disposition: 10:22
== END 2020-12-22 10:57 | disposition home or self-care (01) ==
LOC: ED 06:49
DX: L50.9 Urticaria, unspecified (principal)
CPT/HCPCS: 99282